=== PATIENT | female | born 1985 | race Caucasian/White ===

== ENCOUNTER 2020-01-27 11:29 | Outpatient (REF) | payer OTHER, SELFPAY ==
--- NOTE | 2020-01-27 11:39 | XR_ITS ---
EXAMINATION: XR CHEST CLINICAL INFORMATION: Cough. COMPARISON: None TECHNIQUE: 2 views of the chest were obtained. FINDINGS: No significant abnormality is noted involving the heart, lungs, mediastinum, bony thorax or soft tissues. XR/XR chest 2V IMPRESSION: Unremarkable chest examination.
== END 2020-01-27 11:30 | disposition home or self-care (01) ==
LOC: HO.HMGCX 11:29
PROVIDERS: PCP Internal Medicine; Visit Provider Hospitalist
DX: R05 Cough (principal)
CPT/HCPCS: 71046

== ENCOUNTER 2020-01-27 11:35 | Outpatient (REF) | payer OTHER, SELFPAY | END 2020-01-27 11:36 | disposition home or self-care (01) | LOC: HO.LAB 11:35 | PROVIDERS: Visit Provider Hospitalist | DX: R05 Cough (principal) | CPT/HCPCS: U0003 ==

== ENCOUNTER 2020-02-24 12:30 | Outpatient (REF) | payer OTHER, SELFPAY ==
[2020-02-24 12:55] LABS: MANUAL DIFF FLAG NO
[2020-02-24 13:02] LABS: Basophils Percent Auto 0.6 % (0-2); Eosinophils Absolute Auto 0.3 X10*3/uL (0.0-0.4); Hematocrit 36.5 % (37-47); Hemoglobin 12.7 g/dl (12.0-16.0); Imm Gran Abs Auto 0.01 X10*3/uL (0.00-0.03); Imm Gran Pct Auto 0.2 % (0.0-0.4); Lymphocytes Percent Auto 39.8 % (20-40); Mean Corpuscular HGB Conc 34.8 g/dl (31.0-35.0); Mean Corpuscular Hemoglobin 32.2 pg (27.0-33.0); Mean Corpuscular Volume 92.4 fL (80-98); Mean Platelet Volume 10.1 fL (9.4-12.3); Monocytes Absolute Auto 0.4 X10*3/uL (0.1-1.2); Monocytes Percent Auto 7.2 % (2-11); Neutrophils Absolute Auto 2.4 X10*3/uL (2.0-8.3); Neutrophils Percent Auto 47.2 % (45-73); Platelet Count 245 X10*3/uL (160-400); Red Blood Count 3.95 X10*6/uL (4.20-5.50); Red Cell Distribution Width 11.5 % (11.0-16.0)
[2020-02-24 13:28] LABS: Alanine Aminotransferase 15 U/L (0-31); Albumin Level 4.5 g/dL (3.5-5.0); Alkaline Phosphatase 43 U/L (39-117); Anion Gap 11 (12-20); Aspartate Amino Transferase 17 U/L (5-31); Bilirubin Total 0.6 mg/dL (0.0-1.0); Blood Urea Nitrogen 13 mg/dL (9-16); Calcium 9.3 mg/dL (8.4-10.2); Carbon Dioxide 27 mmol/L (22-29); Chloride 107 mmol/L (96-108); Estimated Glomerular Filt Rate > 60; Glucose Random 88 mg/dL (60-115); Magnesium 2.1 mg/dL (1.6-2.6); Potassium 4.4 mmol/l (3.3-5.1); Sodium 141 mmol/L (135-145); Total Protein 7.4 g/dL (6.5-8.0)
[2020-02-24 13:48] LABS: TSH reflex Free T4 0.49 mIU/mL (0.32-4.0)
[2020-02-24 14:26] LABS: Erythrocyte Sedimentation Rate 2 MM/HR (0-20)
[2020-02-26 13:02] LABS: Anti Nuclear Antibody Screen NEGATIVE (NEGATIVE)
== END 2020-02-24 12:31 | disposition home or self-care (01) ==
LOC: HO.LAB 12:30
PROVIDERS: PCP Internal Medicine; Visit Provider Internal Medicine
DX: I10 Essential (primary) hypertension (principal); M79.603 Pain in arm, unspecified; M79.10 Myalgia, unspecified site; M79.7 Fibromyalgia; E78.00 Pure hypercholesterolemia, unspecified
CPT/HCPCS: 36415; 80053; 82550; 83735; 84443; 85025; 85652; 86038; 86039; 86140

== ENCOUNTER 2020-03-21 12:38 | Outpatient (REF) | payer OTHER, SELFPAY ==
[2020-03-21 14:42] LABS: Anion Gap 13 (12-20); Blood Urea Nitrogen 9 mg/dL (9-16); Carbon Dioxide 24 mmol/L (22-29); Chloride 107 mmol/L (96-108); Estimated Glomerular Filt Rate > 60; Glucose Random 87 mg/dL (60-115); Rheumatoid Factor < 15.0 IU/mL (<15.0); Sodium 140 mmol/L (135-145)
[2020-03-21 15:31] LABS: Erythrocyte Sedimentation Rate 5 MM/HR (0-20)
[2020-03-22 08:48] LABS: Lyme Abs Screen <0.90 index
[2020-03-22 11:31] LABS: IgA 335 mg/dL (47-310); IgG 1213 mg/dL (600-1640); IgM 139 mg/dL (50-300)
[2020-03-22 12:22] LABS: Anti DNA DS Antibody 4 IU/mL
[2020-03-23 08:22] LABS: Anti Nuclear Antibody Screen NEGATIVE (NEGATIVE)
[2020-03-24 06:52] LABS: Aldolase 4.2 U/L (<=8.1)
== END 2020-03-21 12:39 | disposition home or self-care (01) ==
LOC: HO.LAB 12:38
PROVIDERS: PCP Internal Medicine; Visit Provider Psychiatry & Neurology Neurology
DX: M79.7 Fibromyalgia (principal)
CPT/HCPCS: 36415; 80048; 82085; 82550; 82784; 85652; 86038; 86039; 86225; 86431; 86618

== ENCOUNTER 2020-04-26 17:26 | Outpatient (REF) | payer OTHER, SELFPAY ==
--- NOTE | ~2020-04-26 | XR_ITS ---
EXAMINATION: BILATERAL SHOULDERS AND ELBOWS CLINICAL INFORMATION: Pain COMPARISON: None TECHNIQUE: 4 views of the shoulder and 3 views of each elbow FINDINGS: Left elbow: There is no evidence of acute fracture or dislocation of the left elbow. No left elbow effusion is identified. No evidence of calcific tendinitis. Right elbow: There is no evidence of acute fracture or dislocation of the right elbow. No right elbow effusion. No evidence of calcific tendinitis. Left shoulder: There is no evidence of acute fracture or dislocation of the left shoulder. Glenohumeral joint appears unremarkable. No evidence of calcific tendinitis. No widening of the coracoid clavicular space is seen. Right shoulder: There is no evidence of acute fracture or dislocation of the right shoulder. No calcific tendinitis. Glenohumeral joint appears unremarkable. No elevation of the coracoclavicular space. XR/XR shoulder LT min 2V IMPRESSION: No significant bony abnormality of either shoulder or elbow.
--- NOTE | ~2020-04-26 | XR_ITS ---
EXAMINATION: BILATERAL SHOULDERS AND ELBOWS CLINICAL INFORMATION: Pain COMPARISON: None TECHNIQUE: 4 views of the shoulder and 3 views of each elbow FINDINGS: Left elbow: There is no evidence of acute fracture or dislocation of the left elbow. No left elbow effusion is identified. No evidence of calcific tendinitis. Right elbow: There is no evidence of acute fracture or dislocation of the right elbow. No right elbow effusion. No evidence of calcific tendinitis. Left shoulder: There is no evidence of acute fracture or dislocation of the left shoulder. Glenohumeral joint appears unremarkable. No evidence of calcific tendinitis. No widening of the coracoid clavicular space is seen. Right shoulder: There is no evidence of acute fracture or dislocation of the right shoulder. No calcific tendinitis. Glenohumeral joint appears unremarkable. No elevation of the coracoclavicular space. XR/XR elbow RT min 3V IMPRESSION: No significant bony abnormality of either shoulder or elbow.
--- NOTE | ~2020-04-26 | XR_ITS ---
EXAMINATION: BILATERAL SHOULDERS AND ELBOWS CLINICAL INFORMATION: Pain COMPARISON: None TECHNIQUE: 4 views of the shoulder and 3 views of each elbow FINDINGS: Left elbow: There is no evidence of acute fracture or dislocation of the left elbow. No left elbow effusion is identified. No evidence of calcific tendinitis. Right elbow: There is no evidence of acute fracture or dislocation of the right elbow. No right elbow effusion. No evidence of calcific tendinitis. Left shoulder: There is no evidence of acute fracture or dislocation of the left shoulder. Glenohumeral joint appears unremarkable. No evidence of calcific tendinitis. No widening of the coracoid clavicular space is seen. Right shoulder: There is no evidence of acute fracture or dislocation of the right shoulder. No calcific tendinitis. Glenohumeral joint appears unremarkable. No elevation of the coracoclavicular space. XR/XR shoulder RT min 2V IMPRESSION: No significant bony abnormality of either shoulder or elbow.
--- NOTE | ~2020-04-26 | XR_ITS ---
EXAMINATION: BILATERAL SHOULDERS AND ELBOWS CLINICAL INFORMATION: Pain COMPARISON: None TECHNIQUE: 4 views of the shoulder and 3 views of each elbow FINDINGS: Left elbow: There is no evidence of acute fracture or dislocation of the left elbow. No left elbow effusion is identified. No evidence of calcific tendinitis. Right elbow: There is no evidence of acute fracture or dislocation of the right elbow. No right elbow effusion. No evidence of calcific tendinitis. Left shoulder: There is no evidence of acute fracture or dislocation of the left shoulder. Glenohumeral joint appears unremarkable. No evidence of calcific tendinitis. No widening of the coracoid clavicular space is seen. Right shoulder: There is no evidence of acute fracture or dislocation of the right shoulder. No calcific tendinitis. Glenohumeral joint appears unremarkable. No elevation of the coracoclavicular space. XR/XR elbow LT min 3V IMPRESSION: No significant bony abnormality of either shoulder or elbow.
== END 2020-04-26 17:27 | disposition home or self-care (01) ==
LOC: HO.XRAY 17:26
PROVIDERS: PCP Internal Medicine; Visit Provider Internal Medicine
DX: M25.522 Pain in left elbow (principal); M25.521 Pain in right elbow; M25.511 Pain in right shoulder; M25.512 Pain in left shoulder
CPT/HCPCS: 73030; 73080

== ENCOUNTER 2020-05-09 10:58 | Outpatient (REF) | payer OTHER, SELFPAY ==
[2020-05-09 12:39] LABS: MANUAL DIFF FLAG NO
[2020-05-09 12:47] LABS: Basophils Percent Auto 0.7 % (0-2); Eosinophils Absolute Auto 0.3 X10*3/uL (0.0-0.4); Eosinophils Percent Auto 5.2 % (0-4); Hematocrit 36.4 % (37-47); Hemoglobin 12.6 g/dl (12.0-16.0); Imm Gran Abs Auto 0.01 X10*3/uL (0.00-0.03); Imm Gran Pct Auto 0.2 % (0.0-0.4); Lymphocytes Absolute Auto 2.2 X10*3/uL (1.2-4.9); Lymphocytes Percent Auto 41.4 % (20-40); Mean Corpuscular HGB Conc 34.6 g/dl (31.0-35.0); Mean Corpuscular Hemoglobin 32.3 pg (27.0-33.0); Mean Corpuscular Volume 93.3 fL (80-98); Mean Platelet Volume 10.2 fL (9.4-12.3); Monocytes Absolute Auto 0.3 X10*3/uL (0.1-1.2); Monocytes Percent Auto 5.8 % (2-11); Neutrophils Absolute Auto 2.5 X10*3/uL (2.0-8.3); Neutrophils Percent Auto 46.7 % (45-73); Platelet Count 271 X10*3/uL (160-400); Red Cell Distribution Width 11.5 % (11.0-16.0); White Blood Count 5.4 X10*3/uL (4.8-10.8)
[2020-05-09 13:17] LABS: Alanine Aminotransferase 13 U/L (0-31); Albumin Level 4.6 g/dL (3.5-5.0); Alkaline Phosphatase 46 U/L (39-117); Anion Gap 14 (12-20); Aspartate Amino Transferase 16 U/L (5-31); Bilirubin Total 0.5 mg/dL (0.0-1.0); Blood Urea Nitrogen 12 mg/dL (9-16); C Reactive Protein 0.09 mg/dL (< or = 0.50); Calcium 9.5 mg/dL (8.4-10.2); Carbon Dioxide 25 mmol/L (22-29); Chloride 106 mmol/L (96-108); Estimated Glomerular Filt Rate > 60; Glucose Random 88 mg/dL (60-115); Potassium 4.6 mmol/L (3.3-5.1); Sodium 140 mmol/L (135-145); Total Protein 7.5 g/dL (6.5-8.0)
[2020-05-09 14:49] LABS: Erythrocyte Sedimentation Rate 4 MM/HR (0-20)
[2020-05-10 21:27] LABS: Lyme Abs Screen <0.90 index
[2020-05-11 13:21] LABS: Cyclic Citrullinated Peptide <16 UNITS
[2020-05-12 15:47] LABS: Vitamin D 25-OH, D2 <4 ng/mL; Vitamin D 25-OH, D3 22 ng/mL; Vitamin D 25-OH, Total 22 ng/mL (30-100)
== END 2020-05-09 10:59 | disposition home or self-care (01) ==
LOC: HO.LAB 10:58
PROVIDERS: PCP Internal Medicine; Visit Provider Student in an Organized Health Care Education/Training Program
DX: M25.50 Pain in unspecified joint (principal); Z79.899 Other long term (current) drug therapy
CPT/HCPCS: 36415; 80053; 82306; 82550; 84443; 85025; 85652; 86140; 86200; 86618; 99202

== ENCOUNTER → 2020-05-23 09:30 | Outpatient (BNVA) | payer OTHER, SELFPAY | PROVIDERS: PCP Internal Medicine; Visit Provider Student in an Organized Health Care Education/Training Program | DX: M25.50 Pain in unspecified joint (principal) | CPT/HCPCS: 99212 ==

== ENCOUNTER 2020-07-14 17:56 | Outpatient (REF) | payer OTHER, SELFPAY ==
--- NOTE | ~2020-07-14 | MR_ITS ---
EXAMINATION: UNENHANCED MRI OF THE CERVICAL SPINE; UNENHANCED MRI OF THE THORACIC SPINE CLINICAL INFORMATION: Radiculopathy. Self-reported bilateral arm pain with symptoms since October 2019. COMPARISON: None TECHNIQUE: Routine unenhanced MRI of the cervical spine; routine unenhanced MRI of the thoracic spine. FINDINGS: MRI CERVICAL SPINE: Vertebral body height, alignment and marrow signal are within normal limits. The visualized posterior fossa structures and craniocervical junction are normal in appearance with note made of relative flexion of the craniocervical junction. No cerebellar tonsillar ectopia is visualized. C2-C3: No central or foraminal stenoses. Normal intervertebral disc. C3-C4: Minimal right uncovertebral joint disc-osteophyte complex. No significant central or foraminal stenoses. C4-C5: No central or foraminal stenoses. Normal intervertebral disc. C5-C6: Minimal bilateral uncovertebral joint disc-osteophyte complexes. No significant central or foraminal stenoses. C6-C7: Mild central stenosis. Findings arise secondary to a mild central disc-osteophyte complex comprised predominantly of disc material with minimal effacement of the ventral thecal sac CSF space. C7-T1: Moderate posterior broad-based disc-osteophyte complex with bilateral uncovertebral joint incorporation resulting in moderate bilateral foraminal stenoses and moderate central stenosis. Approximately 50% bilateral foraminal stenoses are noted. Partial effacement of the ventral thecal sac CSF space is present without posterior displacement or AP deformation of the adjacent spinal cord. No signal abnormality in the adjacent spinal cord. MRI THORACIC SPINE: Thoracic vertebral body height, alignment and marrow signal are normal in appearance. The intervertebral discs of the thoracic spine are normal in appearance. No thoracic central or foraminal stenoses are visualized. The thoracic spinal cord is normal in caliber and signal intensity. The conus medullaris terminates in the region of L1-L2 but is not fully included within the image [id number]. No paraspinous masses are identified. Visualized lungs and pleura are normal in appearance. MR/MR cervical spine wo con IMPRESSION: MRI CERVICAL SPINE: 1. C7-T1 moderate bilateral foraminal stenoses with possible bilateral C8 nerve root impingement. Additionally, moderate central stenosis is present without direct spinal cord impingement. 2. Minimal multilevel chronic spondylosis elsewhere in the cervical spine aside from the C7-T1 level without associated direct nerve root impingement or significant central or foraminal stenoses. MRI THORACIC SPINE: Normal.
--- NOTE | ~2020-07-14 | MR_ITS ---
EXAMINATION: UNENHANCED MRI OF THE CERVICAL SPINE; UNENHANCED MRI OF THE THORACIC SPINE CLINICAL INFORMATION: Radiculopathy. Self-reported bilateral arm pain with symptoms since October 2019. COMPARISON: None TECHNIQUE: Routine unenhanced MRI of the cervical spine; routine unenhanced MRI of the thoracic spine. FINDINGS: MRI CERVICAL SPINE: Vertebral body height, alignment and marrow signal are within normal limits. The visualized posterior fossa structures and craniocervical junction are normal in appearance with note made of relative flexion of the craniocervical junction. No cerebellar tonsillar ectopia is visualized. C2-C3: No central or foraminal stenoses. Normal intervertebral disc. C3-C4: Minimal right uncovertebral joint disc-osteophyte complex. No significant central or foraminal stenoses. C4-C5: No central or foraminal stenoses. Normal intervertebral disc. C5-C6: Minimal bilateral uncovertebral joint disc-osteophyte complexes. No significant central or foraminal stenoses. C6-C7: Mild central stenosis. Findings arise secondary to a mild central disc-osteophyte complex comprised predominantly of disc material with minimal effacement of the ventral thecal sac CSF space. C7-T1: Moderate posterior broad-based disc-osteophyte complex with bilateral uncovertebral joint incorporation resulting in moderate bilateral foraminal stenoses and moderate central stenosis. Approximately 50% bilateral foraminal stenoses are noted. Partial effacement of the ventral thecal sac CSF space is present without posterior displacement or AP deformation of the adjacent spinal cord. No signal abnormality in the adjacent spinal cord. MRI THORACIC SPINE: Thoracic vertebral body height, alignment and marrow signal are normal in appearance. The intervertebral discs of the thoracic spine are normal in appearance. No thoracic central or foraminal stenoses are visualized. The thoracic spinal cord is normal in caliber and signal intensity. The conus medullaris terminates in the region of L1-L2 but is not fully included within the image [id number]. No paraspinous masses are identified. Visualized lungs and pleura are normal in appearance. MR/MR thoracic spine wo con IMPRESSION: MRI CERVICAL SPINE: 1. C7-T1 moderate bilateral foraminal stenoses with possible bilateral C8 nerve root impingement. Additionally, moderate central stenosis is present without direct spinal cord impingement. 2. Minimal multilevel chronic spondylosis elsewhere in the cervical spine aside from the C7-T1 level without associated direct nerve root impingement or significant central or foraminal stenoses. MRI THORACIC SPINE: Normal.
== END 2020-07-14 17:57 | disposition home or self-care (01) ==
LOC: HO.MRI 17:56
PROVIDERS: Visit Provider Physical Medicine & Rehabilitation
DX: M54.12 Radiculopathy, cervical region (principal)
CPT/HCPCS: 72141; 72146

== ENCOUNTER 2020-07-25 17:43 | Outpatient (REF) | payer OTHER, SELFPAY ==
--- NOTE | ~2020-07-25 | MR_ITS ---
EXAMINATION: MRI WRIST WITHOUT CONTRAST, LEFT CLINICAL INFORMATION: Elbow pain. Medial pain. COMPARISON: X-ray 04/26/2020 TECHNIQUE: MRI of the wrist without contrast is performed in a 1.5 Shahida high-field scanner. FINDINGS: BONE/JOINTS: Normal articulation. Marrow signal is within normal limits. No evidence of fracture or marrow edema. No osteochondral lesion. No significant effusion. MUSCLE/TENDONS: Biceps, brachialis, triceps tendons are intact. Common flexor and common extensor tendon origins are intact. Muscles appear unremarkable. LIGAMENTS: Ulnar collateral ligament, radial collateral ligament, lateral ulnar collateral ligaments are intact. MEDIAN NERVE: Within normal limits. MR/MR elbow LT wo con IMPRESSION: 1. No evidence of acute osseous . 2. Tendons are intact. 3. . Ligaments appear intact.
--- NOTE | ~2020-07-25 | MR_ITS ---
EXAMINATION: MRI ELBOW WITHOUT CONTRAST, RIGHT CLINICAL INFORMATION: Medial elbow pain. COMPARISON: Right elbow radiographs dated April 26, 2020. TECHNIQUE: MRI of the right elbow was performed without administration of IV contrast. Multiplanar, multisequence MR imaging was performed. FINDINGS: Bone/Cartilage: The bone marrow signal intensity is within normal limits. No fracture line or bone marrow edema. The radiocapitellar and ulnohumeral articulations are maintained. No erosion or periosteal edema. No osteochondral lesion. Tendons: The common flexor and extensor tendons are intact. The biceps tendon and lacertus fibrosis are intact. The brachialis tendon is intact. The triceps tendon is intact. Ligaments: The radial collateral and lateral ulnar collateral ligaments are intact. The annular ligament is intact. The ulnar collateral ligament is intact. Soft tissues: The muscles are normal in signal and morphology. No joint effusion. The soft tissues are unremarkable. The cubital tunnel is unremarkable without accessory musculature. The visualized radial, median and ulnar nerves are normal in course, caliber and signal intensity. MR/MR elbow RT wo con IMPRESSION: Right elbow: 1. Intact common flexor and extensor tendons. 2. Intact ligaments. 3. Preserved articular cartilage. 4. Normal signal of the median, ulnar, and radial nerves. 5. Normal signal and morphology of the visualized musculature.
== END 2020-07-25 17:44 | disposition home or self-care (01) ==
LOC: HO.MRI 17:43
PROVIDERS: Visit Provider Internal Medicine
DX: M25.521 Pain in right elbow (principal); M25.522 Pain in left elbow
CPT/HCPCS: 73221

== ENCOUNTER 2020-07-27 17:49 | Outpatient (REF) | payer OTHER, SELFPAY ==
--- NOTE | ~2020-07-27 | MR_ITS ---
EXAMINATION: MRI SHOULDER WITHOUT CONTRAST, LEFT CLINICAL INFORMATION: Pain in shoulder. Patient reports bilateral shoulder weakness and burning. COMPARISON: None. TECHNIQUE: MRI scanning is performed using a standard protocol on a high-field strength 1.5 Shahida magnet. FINDINGS: ROTATOR CUFF: Intact. No muscle atrophy or fatty infiltration. BICEPS: Normal. CORACOACROMIAL ARCH: The undersurface of the acromion is curved with no subacromial spur. The acromioclavicular joint is normal. LABRUM/CAPSULE: Normal. GLENOHUMERAL JOINT/MARROW: Normal. MR/MR shoulder LT wo con IMPRESSION: Unremarkable MRI of the left shoulder with no evidence of internal derangement.
--- NOTE | ~2020-07-27 | MR_ITS ---
EXAMINATION: MR SHOULDER WITHOUT CONTRAST, RIGHT CLINICAL INFORMATION: Pain in right shoulder. Patient reports bilateral weakness and burning. COMPARISON: None TECHNIQUE: MRI of the shoulder without contrast was performed on a high-field scanner. FINDINGS: ROTATOR CUFF: There is mild distal supraspinatus tendinosis. There is a suggestion of minor bursal surface fraying. There is no discrete measurable tear. The infraspinatus, teres minor, and subscapularis tendons are intact. No muscle atrophy or fatty infiltration. BICEPS: Normal. CORACOACROMIAL ARCH: The undersurface of the acromion is curved with no subacromial spur. The acromioclavicular joint is normal. LABRUM/CAPSULE: Normal. GLENOHUMERAL JOINT/MARROW: Normal. MR/MR shoulder RT wo con IMPRESSION: Mild distal supraspinatus tendinosis with suggestion of minor bursal surface fraying. No discrete tear. No other evidence of internal derangement.
== END 2020-07-27 17:50 | disposition home or self-care (01) ==
LOC: HO.MRI 17:49
PROVIDERS: Visit Provider Internal Medicine
DX: M25.511 Pain in right shoulder (principal); M25.512 Pain in left shoulder
CPT/HCPCS: 73221

== ENCOUNTER 2020-08-03 19:16 | Outpatient (REF) | payer OTHER, SELFPAY ==
--- NOTE | ~2020-08-03 | MR_ITS ---
EXAMINATION: MR WRIST WITHOUT CONTRAST, RIGHT CLINICAL INFORMATION: Right wrist pain COMPARISON: None TECHNIQUE: MRI of the right wrist was performed using routine sequences on a high-field 1.5 Shahida scanner. FINDINGS: BONES AND JOINTS: The distal radius, ulna and radioulnar joint are normal. The ulna is properly positioned within the sigmoid notch. Carpal bones have normal alignment and normal bone marrow signal. Articular cartilage of the wrist is preserved. No bone bruise, fracture or osteonecrosis. No joint effusion. No evidence of synovitis. The first carpometacarpal joint is normal. TRIANGULAR FIBROCARTILAGE: The triangular fibrocartilage disc is intact. The peripheral, fascicular attachments of the TFC to the ulnar styloid and fovea are intact. The volar and dorsal radioulnar ligaments, and ulnotriquetral ligament, are unremarkable. INTRINSIC LIGAMENTS: Scapholunate and lunatotriquetral ligaments are intact. TENDONS: Flexor and extensor tendons of the wrist have a normal appearance. No evidence of tendon tear or de Quervain's tenosynovitis. NERVES AND OTHER SOFT TISSUES: Median nerve has normal size and signal intensity as it courses through the carpal tunnel. The radial and ulnar neurovascular bundles are unremarkable. No lesions within Guyon's canal. Volar to the region of the radioscaphoid joint, there is a 0.2 x 0.4 x 0.6 cm ganglion or synovial cyst. MR/MR wrist RT wo con IMPRESSION: * No evidence of ligament tear. * No bone bruise or fracture at the right wrist. * There is a small, 0.2 x 0.4 x 0.6 cm ganglion or synovial cyst volar to the radioscaphoid joint.
== END 2020-08-03 19:17 | disposition home or self-care (01) ==
LOC: HO.MRI 19:16
PROVIDERS: PCP Internal Medicine; Visit Provider Internal Medicine
DX: G89.29 Other chronic pain (principal); M25.531 Pain in right wrist
CPT/HCPCS: 73221

== ENCOUNTER 2021-02-28 13:17 | Outpatient (REF) | payer OTHER, SELFPAY ==
[2021-02-28 14:59] LABS: Hematocrit 36.9 % (37.0-47.0); Hemoglobin 12.9 g/dl (12.0-16.0); Mean Corpuscular Hemoglobin 32.3 pg (27.0-33.0); Mean Corpuscular Volume 92.3 fL (80.0-98.0); Platelet Count 236 X10*3/uL (160-400); Red Cell Distribution Width 11.4 % (11.0-16.0); White Blood Count 7.9 X10*3/uL (4.8-10.8)
[2021-02-28 15:38] LABS: Thyroid Stimulating Hormone 1.13 uIU/mL (0.32-4.0)
[2021-03-01 01:50] LABS: CT PCR NOT DETECTED (Not Detect.); NG PCR NOT DETECTED (Not Detect.)
[2021-03-01 09:13] LABS: BV Int Neg Control Negative (Negative); BV Int Pos Control Positive (Positive)
[2021-03-03 02:31] LABS: HPV mRNA E6/E7 rflx Not Detected (Not Detected)
== END 2021-02-28 13:18 | disposition home or self-care (01) ==
LOC: HO.LAB 13:17
PROVIDERS: PCP Internal Medicine; Visit Provider Advanced Practice Midwife
DX: Z01.411 Encounter for gynecological examination (general) (routine) with abnormal findings (principal); Z20.2 Contact with and (suspected) exposure to infections with a predominantly sexual mode of transmission; N89.8 Other specified noninflammatory disorders of vagina; N92.1 Excessive and frequent menstruation with irregular cycle; N94.6 Dysmenorrhea, unspecified; N93.0 Postcoital and contact bleeding; R68.82 Decreased libido
CPT/HCPCS: 36415; 84443; 85027; 87480; 87491; 87510; 87591; 87624; 87660; 88142

== ENCOUNTER 2021-03-26 14:39 | Outpatient (REF) | payer OTHER, SELFPAY ==
--- NOTE | ~2021-03-26 | US_ITS ---
EXAMINATION: US PELVIS CLINICAL INFORMATION: Irregular menstruation. Painful menses. COMPARISON: None. TECHNIQUE: Ultrasound of the pelvis is performed using both transabdominal and transvaginal transducers along with Doppler. Transvaginal imaging is performed due to inadequate visualization transabdominally. FINDINGS: The uterus is anteverted and measures 8.4 x 4.1 x 4.7 cm in dimension. No focal uterine lesion is seen. Endometrial thickness is normal measuring 1 cm. There are nabothian cysts in the cervix. The right ovary measures 4.5 x 2.3 x 3 cm. There is a 2.6 x 2 x 2.2 cm minimally complex right ovarian cyst. The left ovary is normal appearing. The left ovary measures 3.5 x 1.6 x 2.5 cm. There is no fluid in the pelvis. US/US pelvic and transvaginal IMPRESSION: Minimally complex 2.6 x 2 x 2.2 cm right ovarian cyst. Otherwise unremarkable exam.
== END 2021-03-26 14:40 | disposition home or self-care (01) ==
LOC: HO.HMGCX 14:39
PROVIDERS: PCP Internal Medicine; Visit Provider Advanced Practice Midwife
DX: N92.6 Irregular menstruation, unspecified (principal)
CPT/HCPCS: 76830; 76856

== ENCOUNTER → 2021-03-29 11:33 | Outpatient (BNVA) | payer OTHER, SELFPAY | PROVIDERS: PCP Internal Medicine; Visit Provider Advanced Practice Midwife ==

== ENCOUNTER 2021-05-28 13:24 | Outpatient (REF) | payer OTHER, SELFPAY ==
--- NOTE | ~2021-05-28 | US_ITS ---
EXAMINATION: US PELVIS CLINICAL INFORMATION: Ovarian cyst COMPARISON: Previous pelvic ultrasound March 2021 TECHNIQUE: Ultrasound of the pelvis is performed using both transabdominal and transvaginal transducers along with Doppler. Transvaginal imaging is performed due to inadequate visualization transabdominally. FINDINGS: The uterus is anteverted and measures 7 x 3.9 x 4.8 cm in dimension. No focal uterine lesion is seen. Endometrial thickness is normal measuring 0.5 cm. There are nabothian cysts in the cervix. The ovaries are normal-appearing. The right ovary measures 4.3 x 2.1 x 3 cm. The left ovary measures 3.6 x 1.8 x 3 cm. There are multiple small ovarian cysts or follicles, largest measuring 1.6 x 1.1 x 1.4 cm on the left. The previously identified minimally complex 2.6 x 2 x 2.2 cm right ovarian cyst is no longer seen. There is no fluid in the pelvis. US/US pelvic and transvaginal IMPRESSION: Normal pelvic ultrasound.
[2021-05-28 14:45] LABS: MANUAL DIFF FLAG NO
[2021-05-28 15:28] LABS: Basophils Percent Auto 0.4 % (0-2); Eosinophils Absolute Auto 0.2 X10*3/uL (0.0-0.4); Eosinophils Percent Auto 2.4 % (0-4); Hematocrit 37.1 % (37.0-47.0); Hemoglobin 12.6 g/dl (12.0-16.0); Imm Gran Abs Auto 0.01 X10*3/uL (0.00-0.03); Imm Gran Pct Auto 0.1 % (0.0-0.4); Lymphocytes Absolute Auto 2.2 X10*3/uL (1.2-4.9); Mean Corpuscular Hemoglobin 31.4 pg (27.0-33.0); Mean Corpuscular Volume 92.5 fL (80.0-98.0); Mean Platelet Volume 9.8 fL (9.4-12.3); Monocytes Absolute Auto 0.4 X10*3/uL (0.1-1.2); Monocytes Percent Auto 5.2 % (2-11); Neutrophils Absolute Auto 4.1 x10*3/uL (2.0-8.3); Neutrophils Percent Auto 59.9 % (45-73); Platelet Count 283 X10*3/uL (160-400); Red Blood Count 4.01 X10*6/uL (4.20-5.50); Red Cell Distribution Width 11.7 % (11.0-16.0); White Blood Count 6.8 X10*3/uL (4.8-10.8)
[2021-05-28 15:52] LABS: Appearance Urine CLEAR; Color Urine STRAW; Glucose Urine UA NEG (NEG); Leukocyte Esterase Urine NEG (NEG); Nitrite Urine NEG (NEG); PH 5.5 (5.0-8.0); Specific Gravity - Urine <= 1.005 (1.005-1.025); UACC Culture Trigger NO; Urine Blood 1+ (NEG); Urine Ketones NEG (NEG); Urine Protein NEG (NEG-TRACE)
[2021-05-28 15:54] LABS: Alanine Aminotransferase 18 U/L (0-31); Albumin Level 4.4 g/dL (3.5-5.0); Alkaline Phosphatase 43 U/L (39-117); Anion Gap 12 (12-20); Aspartate Amino Transferase 18 U/L (5-31); Bilirubin Total 0.2 mg/dL (0.0-1.0); Blood Urea Nitrogen 13 mg/dL (9-16); C Reactive Protein 0.07 mg/dL (< or = 0.50); Calcium 9.8 mg/dL (8.4-10.2); Carbon Dioxide 26 mmol/L (22-29); Chloride 107 mmol/L (96-108); Cholesterol 163 mg/dL; Estimated Glomerular Filt Rate > 60; Glucose Fasting 83 mg/dL (60-99); HDL Cholesterol 40 mg/dL; LDL Cholesterol Calculated 112 mg/dl; Potassium 4.9 mmol/L (3.3-5.1); Sodium 140 mmol/L (135-145); Total Protein 7.3 g/dL (6.5-8.0); Triglycerides 58 mg/dL
[2021-05-28 16:04] LABS: Erythrocyte Sedimentation Rate 5 MM/HR (0-20)
[2021-05-28 16:16] LABS: TSH reflex Free T4 1.11 uIU/mL (0.32-4.0); Vitamin D 25-OH Total 24.1 ng/mL (>30)
[2021-05-28 16:45] LABS: Squamous Epithelial Cell Urine TRACE /LPF; WBC Urine 0 /HPF (0-4)
[2021-05-30 03:37] LABS: DHEA Sulfate 31 mcg/dL (19-237); Prolactin 6.1 ng/mL
[2021-06-02 20:51] LABS: Testosterone, Free 3.9 pg/mL (0.1-6.4); Testosterone, Total 33 ng/dL (2-45)
== END 2021-05-28 13:25 | disposition home or self-care (01) ==
LOC: HO.US 13:24
PROVIDERS: Absent Provider Internal Medicine; PCP Internal Medicine; Visit Provider Advanced Practice Midwife
DX: Z00.00 Encounter for general adult medical examination without abnormal findings (principal); N83.299 Other ovarian cyst, unspecified side; N92.6 Irregular menstruation, unspecified; E78.00 Pure hypercholesterolemia, unspecified; M47.894 Other spondylosis, thoracic region; E55.9 Vitamin D deficiency, unspecified
CPT/HCPCS: 36415; 76830; 76856; 80053; 80061; 81001; 82306; 82627; 83498; 84146; 84402; 84403; 84443; 85025; 85652; 86140

== ENCOUNTER 2021-06-08 12:31 | Outpatient (REF) | payer OTHER, SELFPAY ==
[2021-06-08 13:00] LABS: COVID-19 Test Positive (Negative)
== END 2021-06-08 12:32 | disposition home or self-care (01) ==
LOC: HO.LAB 12:31
PROVIDERS: Visit Provider Internal Medicine
DX: Z20.822 Contact with and (suspected) exposure to COVID-19 (principal)
CPT/HCPCS: 87635; C9803

== ENCOUNTER → 2021-06-11 11:21 | Outpatient (BNVA) | payer OTHER, SELFPAY | PROVIDERS: PCP Internal Medicine; Visit Provider Advanced Practice Midwife | DX: Z13.89 Encounter for screening for other disorder (principal) ==

== ENCOUNTER 2021-08-02 15:56 | Outpatient (REF) | payer OTHER, SELFPAY ==
[2021-08-02 16:28] LABS: COVID-19 Test Negative (Negative); IDNOW Serial# 16C4AD1C
== END 2021-08-02 15:57 | disposition home or self-care (01) ==
LOC: HO.LAB 15:56
PROVIDERS: Visit Provider Internal Medicine
DX: Z20.822 Contact with and (suspected) exposure to COVID-19 (principal)
CPT/HCPCS: 87635; C9803

== ENCOUNTER 2022-03-04 13:19 | Outpatient (REF) | payer OTHER, SELFPAY ==
[2022-03-05 09:43] LABS: BV Int Neg Control Negative (Negative); BV Int Pos Control Positive (Positive)
== END 2022-03-04 13:20 | disposition home or self-care (01) ==
LOC: HO.LAB 13:19
PROVIDERS: PCP Internal Medicine; Visit Provider Advanced Practice Midwife
DX: N92.0 Excessive and frequent menstruation with regular cycle (principal); N94.6 Dysmenorrhea, unspecified; F32.A Depression, unspecified
CPT/HCPCS: 87480; 87510; 87660

== ENCOUNTER 2022-10-25 09:03 | Outpatient (REF) | payer OTHER, SELFPAY ==
--- NOTE | ~2022-10-25 | XR_ITS ---
EXAMINATION: XR THORACOLUMBAR SPINE CLINICAL INFORMATION: Pain. COMPARISON: Portions of the MRI thoracic spine dated 07/06/2020. TECHNIQUE: Frontal and lateral views of the thoracic spine are submitted. FINDINGS: Vertebral body heights are normal. There is a very mild thoracic dextroscoliosis, which may be positional. The thoracic disc spaces are well-maintained. No acute fracture or spondylolisthesis is seen. There is mild anterior spondylosis at T3-T4 and T4-T5. The posterior elements are intact. The paravertebral soft tissues are unremarkable. XR/XR thoracic spine 2V IMPRESSION: 1. There is a very mild thoracic dextroscoliosis, which may be positional. 2. The thoracic disc spaces are well-maintained. 3. There is mild anterior spondylosis at C3-C4 and C4-C5. EXAMINATION: XR LUMBOSACRAL SPINE CLINICAL INFORMATION: Pain. COMPARISON: None TECHNIQUE: AP and lateral (neutral, flexion and extension) views of the lumbar spine and lateral view of the lumbosacral junction. FINDINGS: The vertebral bodies and posterior elements are normal. The disc spaces are preserved and the vertebral alignment is normal. A small limbus vertebra is seen anterior to the L1 upper endplate. No acute fracture or spondylolisthesis is seen. There is no instability with flexion or extension. The paraspinal soft tissues are normal. IMPRESSION: Unremarkable examination.
--- NOTE | ~2022-10-25 | XR_ITS ---
EXAMINATION: XR THORACOLUMBAR SPINE CLINICAL INFORMATION: Pain. COMPARISON: Portions of the MRI thoracic spine dated 07/06/2020. TECHNIQUE: Frontal and lateral views of the thoracic spine are submitted. FINDINGS: Vertebral body heights are normal. There is a very mild thoracic dextroscoliosis, which may be positional. The thoracic disc spaces are well-maintained. No acute fracture or spondylolisthesis is seen. There is mild anterior spondylosis at T3-T4 and T4-T5. The posterior elements are intact. The paravertebral soft tissues are unremarkable. XR/XR lumbar spine 4V min IMPRESSION: 1. There is a very mild thoracic dextroscoliosis, which may be positional. 2. The thoracic disc spaces are well-maintained. 3. There is mild anterior spondylosis at C3-C4 and C4-C5. EXAMINATION: XR LUMBOSACRAL SPINE CLINICAL INFORMATION: Pain. COMPARISON: None TECHNIQUE: AP and lateral (neutral, flexion and extension) views of the lumbar spine and lateral view of the lumbosacral junction. FINDINGS: The vertebral bodies and posterior elements are normal. The disc spaces are preserved and the vertebral alignment is normal. A small limbus vertebra is seen anterior to the L1 upper endplate. No acute fracture or spondylolisthesis is seen. There is no instability with flexion or extension. The paraspinal soft tissues are normal. IMPRESSION: Unremarkable examination.
== END 2022-10-25 09:04 | disposition home or self-care (01) ==
LOC: HO.XRAY 09:03
PROVIDERS: Visit Provider Physical Medicine & Rehabilitation
DX: M54.6 Pain in thoracic spine (principal); M54.50 Low back pain, unspecified
CPT/HCPCS: 72070; 72110

== ENCOUNTER 2022-11-01 13:07 | Outpatient (AMB) | payer OTHER, SELFPAY ==
[2022-11-01 13:11] VITALS: BP 118/72; PULSE 66; O2SAT 98; BMI 24.4
--- NOTE | 2022-11-01 13:11 | MHC.PC.OV ---
Vital Signs 11/01/22 13:11 Height 5 ft 1 in Weight 129 lb BMI 24.4 BP 118/72 Blood Pressure Location Lt brachial Position Sitting Pulse 66 Pulse Source Pulse Oximeter Pulse Oximetry (%) 98 Oxygen Delivery Method Room Air Intake Visit Reasons: Physical exam Personnel Administrator Required: No Accompanied by: Self / Same As Patient Allergies Penicillins Allergy (Unknown, Verified 11/01/22 13:28) Itching Medication List - Last Reconciled 11/01/22 by Jacinto Rivera MD etonogestrel-ethinyl estradiol 0.12-0.015 mg/24 hr (NuvaRing) 1 vag ring vaginal Q4W 3 weeks Tobacco use date assessed: 11/01/22 Dental Screening Dental Screen Date: 11/01/22 Did you have a dental visit in the last 12 months?: Yes Did you have a dental problem in the last 6 months where you did not have access to dental care?: No Was dental information given to patient?: Patient has dentist HPI Physical exam HPI Details Patient comes in today for her annual physical examination - was last seen in 01/2021 States that she has been experiencing increased anxiety for the past few months now Relates that her has ADHD and trying to constantly help him get on track with everything is making things feel a lot worse for her lately Recalls that she has taken Prozac when she was a teenager and later was on Zoloft in the past - thinks that she did well on Zoloft Adds that she was experiencing increased pain over her left wrist for a while but it is now feeling better and it is her right wrist now that is bothering her - states that this has been going on for about 6 months now and she would like to get a referral to physical therapy for her wrist She has been seeing her chiropractor regularly for her back pain and currently still has recurrent pain over her right mid to lower thoracic area Recalls getting some back x-rays ordered by her chiropractor done recently and was advised that her x-rays were normal She would like to get referred to physical therapy as well for her right-sided back pain States that she has some significant family history of cancer, particularly breast cancer, but was recently advised that she is too young to get screening mammogram started Would like to see if she can be referred for some genetic testing States that she was offered states free genetic testing at [facility] in [place] but was told that she will need to be part of a clinical trial to be able to get the genetic testing done for free - she currently has a couple of family members who are involved in the trial States that she was advised that she will need a couple of genetic test done by a company called [employer] and she would like to see if she can just and the test ordered as she does not wish to be part of a clinical trial States that she feels okay otherwise She denies any headaches or dizziness Denies any chest pains, no shortness of breath No nausea /vomiting, no abdominal pain No change in bowel habits noted Denies any acute urinary symptoms PFSH Medical History (Updated 11/03/22 @ 21:17 by Jacinto Rivera MD) Depression Anxiety Cervical spondylosis with radiculopathy Chronic pain of right wrist Bilateral elbow joint pain Shoulder pain, bilateral Musculoskeletal pain of upper extremity Surgical History [place] teeth extracted Family History Mother Breast cancer Congestive heart failure Maternal Grandfather Colon cancer Diabetes Sister Brain tumor (benign) Other Mental health problem Substance abuse Social History Housing: Apartment Alcohol intake: current Alcohol intake frequency: holidays/special occasions only Patient Tobacco Use Status: Never used Tobacco Second Hand Smoke Exposure: Yes service: No Current occupational status: employed 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 1. Little interest or pleasure in doing things: not at all 2. Feeling down, depressed, or hopeless: not at all 3. Trouble falling or staying asleep, or sleeping too much: not at all 4. Feeling tired or having little energy: not at all 5. Poor appetite or overeating: not at all 6. Feeling bad about yourself - or that you are a failure or have let yourself or your family down: not at all 7. Trouble concentrating on things, such as reading the newspaper or watching television: not at all 8. Moving or speaking so slowly that other people could have noticed. Or the opposite - being so fidgety or restless that you have been moving around a lot more than usual: not at all 9. Thoughts that you would be better off or of hurting yourself in some way: not at all Total score: 0 Depression Screening Interpretation: Negative 14077 - PHQ-9 Billing: Yes Source: Developed by Drs. Hank Reyes, Chelsea Rob, Jorge Edmonds and colleagues, with an educational kaitlin from [employer]. Thrive Questionnaire Date Thrive assessed: 11/01/22 I am a: Patient What is your living situation today?: I have a steady place to live Within the past 12 months, did the food you bought not last and you didn't have the money to get more?: Never true Within the past 12 months, did you worry whether your food would run out before you got money to buy more?: Never true Do you have trouble paying for medicines?: No Do you have trouble getting transportation to medical appointments?: No Do you have trouble paying your heating and electricity bill?: No Do you have trouble taking care of your child, family member or friend?: No Do you have trouble with day-to-day activities such as bathing, preparing meals, shopping, managing finances, etc.?: No Are you currently unemployed and looking for a job?: No Are you interested in more education?: No Please select the resources that you would like help with: None Currently or been in a relationship where the following occur: no concerns reported AUDIT C Alcohol Use Questionnaire (AUDIT-C) 1. How often do you have a drink containing alcohol?: Monthly or less 2. How many drinks containing alcohol do you have on a typical day when you are drinking?: 1 or 2 3. How often do you have six or more drinks on one occasion?: Never Total Score: 1 Score Reviewed/Action Taken: Yes JIM-7 AMB Questionnaire JIM-7 Date JIM - 7 assessed: 11/01/22 Feeling nervous, anxious, or on edge: 3 = Nearly every day Not being able to stop or control worryin = Nearly every day Worrying too much about different things: 3 = Nearly every day Trouble relaxin = Nearly every day Being so restless that it is hard to sit still: 3 = Nearly every day Becoming easily annoyed or irritable: 3 = Nearly every day Feeling afraid as if something awful might happen: 3 = Nearly every day Total JIM-7 score (0-4 normal; 5-9 mild; 10-14 moderate; 15-21 severe): 21 Source: Developed by Drs. Hank Reyes, Chelsea Rob, Jorge Edmonds and colleagues, with an educational kaitlin from [employer]. Review of Systems Const Denies chills, Denies fatigue, Denies fever(s), Denies headache(s) and Denies malaise Eyes Denies blurry vision, Denies change in vision, Denies irritation and Denies itchy eyes ENT Denies dysphagia, Denies dizziness, Denies otalgia, Denies headache(s), Denies nasal congestion, Denies neck pain, Denies odynophagia, Denies sinus pain and Denies sore throat Card Denies chest pain, Denies rapid heart rate, Denies irregular heart rhythm, Denies palpitations and Denies dyspnea Resp Denies chest congestion, Denies cough, Denies dyspnea and Denies wheezing GI Denies abdominal pain, Denies bloating, Denies constipation, Denies dysphagia, Denies heartburn, Denies diarrhea, Denies nausea, Denies odynophagia and Denies vomiting Denies hematuria, Denies urinary frequency, Denies dysuria, Denies urinary incontinence and Denies urinary urgency Musc Reports back pain (right middle back), Reports arthralgias (right wrist), Denies joint swelling, Denies muscle weakness and Denies neck pain Skin/Breast Denies breast pain, Denies breast mass, Denies change in pigmentation, Denies lesions, Denies rash and Denies unusual bruising Neuro Denies dizziness, Denies headache(s) and Denies paresthesias Psych Reports anxiety (increasing) and Denies depression Endo Denies fatigue and Denies palpitations Rey/Lymph Denies easy bruising Aller/Immun Denies itchy eyes and Denies wheezing Physical exam (Primary Care) Vital Signs: Last Vital Signs Pulse 66 11/01/22 13:11 BP 118/72 11/01/22 13:11 Pulse Ox 98 11/01/22 13:11 Oxygen Delivery Method Room Air 11/01/22 13:11 BMI result Body Mass Index 24.4 Tobacco/Smoking Status: Tobacco use Status Tobacco use date assessed 11/01/22 11/01/22 13:16 Patient Tobacco Use Status Never used Tobacco 11/01/22 13:16 PHQ-9: PHQ-9 Score PHQ-9: Total score 0 11/01/22 13:30 Depression Screening Interpretation: Negative Thrive Assessment: Date of Thrive Assessment Date Thrive assessed 11/01/22 11/01/22 13:16 Currently or been in a relationship where the following occur: no concerns reported Const General: no acute distress, alert and awake Orientation/consciousness: patient oriented x3 HENMT Head: Yes normocephalic and Yes atraumatic Ears: external ears normal, TM's normal bilaterally and EAC's normal General nose exam: No nasal discharge present Face and sinus: Yes normal facial exam and Yes sinuses nontender Teeth and gingiva: dentition normal Throat: Yes posterior oropharynx normal and Yes tonsils normal (no TP congestion) Eyes Eyelids: Yes eyelids normal Conjunctivae: conjunctivae normal Pupils: Equal, round and reactive pupils present EOM: EOMs intact bilaterally Neck Neck: Yes no lymphadenopathy and Yes supple Thyroid: Thyroid normal Resp Auscultation: clear to auscultation bilaterally, no rales and no wheezes Cardio Rate: regular rate Rhythm: regular rhythm Heart sounds: no murmurs GI Palpation (GI): Soft to palpation, nontender and No hepatosplenomegaly present Auscultation: normal bowel sounds General: Yes no CVA tenderness Back/Spine/Pelvis Back: no CVA tenderness Thoracic/Lumbar Spine: thoracic and lumbar spine normal to inspection and paraspinal muscle tenderness on the right in the mid thoracic and in the lower thoracic Skin Lesions: no lesions Rashes: no rashes Neuro General: patient oriented x3, moves all extremities, no focal motor deficits and CN's II-XI intact bilaterally Cranial nerves: Yes Equal, round and reactive pupils present Cognition (Neuro): normal cognition Gait exam (Neuro): Normal gait present Extrem General: Yes no clubbing, cyanosis or edema Right upper extremity: wrist Details: tenderness; no swelling Assessment and Plan Assessment & Plan (1) Annual physical exam: Code(s): Z00.00 - Encounter for general adult medical examination without abnormal findings Plan: Check labs Patient is up-to-date with 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 and pap smear and her next appt is scheduled in February 2023 (2) Right-sided thoracic back pain: Code(s): M54.6 - Pain in thoracic spine Qualifiers: Chronicity: unspecified Qualified Code(s): M54.6 - Pain in thoracic spine Plan: Thoracic spine x-rays done last week came out normal except for a very mild thoracic dextroscoliosis, which may be positional States that she has been seeing her chiropractor for a while now with no significant relief Per request, will refer her to physical therapy for furher evaluation and management (3) Right wrist pain: Code(s): M25.531 - Pain in right wrist Plan: Per request, will also refer her to physical therapy for further evaluation and management of her right wrist pain (4) Anxiety: Code(s): F41.9 - Anxiety disorder, unspecified Plan: Will start her on Sertraline 50 mg QD and Hydroxyzine 25 mg TID PRN (5) Family history of breast cancer: Code(s): Z80.3 - Family history of malignant neoplasm of breast Plan: States that she has a strong family history of cancer and has a couple of family members involved now in a cancer clinical trial at [facility] in [place] and that she has been advised that she should also get tested for some genetic predisposition to cancer but she does not wish to join a clinical trial and is requesting if we can just order her the genetic testing that she needs Is advised that genetic testing usually will require insurance approval and as we do not have routine genetic testing done here at [facility], the test will have to be sent out and again will have to be pending insurance approval Advised also that the tests that she is currently requesting for are not available commercially Have advised patient that the best way to look into these would be to get a referral to the genetic Department at [facility] but caution that they may not be taking any referrals or they may not accept her health insurance at this time - referral done (6) Breast cancer screening by mammogram: Code(s): Z12.31 - Encounter for screening mammogram for malignant neoplasm of breast Plan: Patient is advised that based on her current family history (mother was reportedly diagnosed with triple negative breast cancer) at age 45, she should have a good chance of getting her mammogram approved by her insurance company at present - screening mammogram ordered Plan Follow up in 3 months Orders: Orders PT Evaluation and Treatment 11/01/22 M25.531 - Pain in right wrist, M54.6 - Pain in thoracic spine MM tomosynthesis screening BI 11/01/22 Z12.31 - Encounter for screening mammogram for malignant neoplasm of breast UA CC w/rflx Micro + Cult 11/01/22 F41.9 - Anxiety disorder, unspecified, R30.0 - Dysuria, Z00.00 - Encounter for general adult medical examination without abnormal findings Complete Blood Count Auto Diff 11/01/22 F41.9 - Anxiety disorder, unspecified, Z00.00 - Encounter for general adult medical examination without abnormal findings Comprehensive [place]el. Panel Fast 11/01/22 F41.9 - Anxiety disorder, unspecified, Z00.00 - Encounter for general adult medical examination without abnormal findings Lipid Panel 11/01/22 E78.00 - Pure hypercholesterolemia, unspecified, F41.9 - Anxiety disorder, unspecified, Z00.00 - Encounter for general adult medical examination without abnormal findings TSH reflex Free T4 11/01/22 E78.00 - Pure hypercholesterolemia, unspecified, F41.9 - Anxiety disorder, unspecified, Z00.00 - Encounter for general adult medical examination without abnormal findings Vitamin D 25-OH Total 11/01/22 E55.9 - Vitamin D deficiency, unspecified, F41.9 - Anxiety disorder, unspecified, Z00.00 - Encounter for general adult medical examination without abnormal findings Referrals Genetics Referral Z80.9 - Family history of malignant neoplasm, unspecified Medications: New sertraline 50 mg PO DAILY 30 days 30 tabs 2RF hydroxyzine HCl 25 mg PO TID 30 days PRN 90 tabs 2RF anxiety Coding Level of Care Code Est Pt Prev Care 18-39y([id number]) Diagnoses Annual physical exam Z00.00 Right-sided thoracic back pain, unspecified chronicity M54.6 Chronicity: unspecified Right wrist pain M25.531 Anxiety F41.9 Family history of breast cancer Z80.3 Breast cancer screening by mammogram Z12.31
== END 2022-11-01 13:52 | disposition home or self-care (01) ==
PROVIDERS: PCP Internal Medicine; Visit Provider Internal Medicine
DX: Z00.00 Encounter for general adult medical examination without abnormal findings (principal); F41.9 Anxiety disorder, unspecified; Z80.3 Family history of malignant neoplasm of breast; M54.6 Pain in thoracic spine; M25.531 Pain in right wrist
CPT/HCPCS: 99395

== ENCOUNTER 2022-11-01 14:03 | Outpatient (REF) | payer OTHER, SELFPAY ==
[2022-11-01 14:25] LABS: MANUAL DIFF FLAG NO
[2022-11-01 14:37] LABS: Basophils Percent Auto 0.4 % (0-2); Eosinophils Absolute Auto 0.2 X10*3/uL (0.0-0.4); Eosinophils Percent Auto 2.4 % (0-4); Hematocrit 38.2 % (37.0-47.0); Hemoglobin 13.4 g/dl (12.0-16.0); Imm Gran Abs Auto 0.01 X10*3/uL (0.00-0.03); Imm Gran Pct Auto 0.1 % (0.0-0.4); Lymphocytes Absolute Auto 2.4 X10*3/uL (1.2-4.9); Lymphocytes Percent Auto 34.1 % (20-40); Mean Corpuscular HGB Conc 35.1 g/dl (31.0-35.0); Mean Corpuscular Hemoglobin 32.1 pg (27.0-33.0); Mean Corpuscular Volume 91.6 fL (80.0-98.0); Mean Platelet Volume 9.9 fL (9.4-12.3); Monocytes Absolute Auto 0.3 X10*3/uL (0.1-1.2); Monocytes Percent Auto 4.6 % (2-11); Neutrophils Absolute Auto 4.1 x10*3/uL (2.0-8.3); Neutrophils Percent Auto 58.4 % (45-73); Platelet Count 269 X10*3/uL (160-400); Red Blood Count 4.17 X10*6/uL (4.20-5.50); Red Cell Distribution Width 11.4 % (11.0-16.0); White Blood Count 7.1 X10*3/uL (4.8-10.8)
[2022-11-01 15:31] LABS: Appearance Urine Clear; Color Urine Yellow; Glucose Urine UA Negative (Negative); Leukocyte Esterase Urine Large (3+) (Negative); Nitrite Urine Negative (Negative); Specific Gravity - Urine 1.015 (1.005-1.025); UMIC TRIGGER UACC YES; Urine Blood Trace (Negative); Urine Ketones Negative (Negative); Urine Protein Negative (Neg-Trace)
[2022-11-01 16:22] LABS: Bacteria Urine 3+ (None Seen); Hyaline Casts Urine 0-2 /LPF (0-2); RBC Urine 0-2 /HPF (0-2); UACC Culture Trigger YES; WBC Urine >50 /HPF (0-5)
[2022-11-01 16:22] LABS: Alanine Aminotransferase 18 U/L (0-31); Albumin Level 4.3 g/dL (3.5-5.0); Alkaline Phosphatase 38 U/L (39-117); Anion Gap 12 (12-20); Aspartate Amino Transferase 17 U/L (5-31); Bilirubin Total 0.5 mg/dL (0.0-1.0); Blood Urea Nitrogen 8 mg/dL (9-16); Calcium 9.7 mg/dL (8.4-10.2); Carbon Dioxide 25 mmol/L (22-29); Chloride 108 mmol/L (96-108); Cholesterol 168 mg/dL (<200); Estimated Glomerular Filt Rate > 60; Glucose Fasting 79 mg/dL (60-99); HDL Cholesterol 45 mg/dL (>40); LDL Cholesterol Calculated 108 mg/dL (<100); Potassium 4.5 mmol/L (3.3-5.1); Sodium 140 mmol/L (135-145); TSH reflex Free T4 0.69 uIU/mL (0.32-4.0); Total Protein 7.5 g/dL (6.5-8.0); Triglycerides 79 mg/dL (<150); Vitamin D 25-OH Total 61.3 ng/mL (>30)
== END 2022-11-01 14:04 | disposition home or self-care (01) ==
LOC: HO.LAB 14:03
PROVIDERS: PCP Internal Medicine; Visit Provider Internal Medicine
DX: Z00.00 Encounter for general adult medical examination without abnormal findings (principal); F41.9 Anxiety disorder, unspecified; E78.00 Pure hypercholesterolemia, unspecified; E55.9 Vitamin D deficiency, unspecified
CPT/HCPCS: 36415; 80053; 80061; 81001; 82306; 84443; 85025; 87086

== ENCOUNTER 2022-12-24 15:36 | Outpatient (REF) | payer OTHER, SELFPAY ==
--- NOTE | ~2022-12-24 | MM_ITS ---
EXAMINATION: MM SCREENING DIGITAL BREAST TOMOSYNTHESIS, BILATERAL CLINICAL INFORMATION: Screening. Asymptomatic. COMPARISON: Mammography: This is a baseline mammogram. TECHNIQUE: Digital breast tomosynthesis is performed in both the craniocaudal and mediolateral oblique views along with computer-aided detection (CAD). Synthesized 2D images are generated from the tomosynthesis. FINDINGS: The breasts are heterogeneously dense, which may obscure small masses (ACR BI-RADS breast composition Category c). There are no significant masses, abnormal calcifications, or other abnormalities. MM/MM tomosynthesis screening BI IMPRESSION: No mammographic evidence of malignancy. ASSESSMENT: BI-RADS BI-RADS 1 - Negative RECOMMENDATION: Routine annual mammography screening. 1 year F/U This examination should not preclude the clinical evaluation of a suspicious palpable abnormality. This patient's information was entered into a reminder system with a target due date for their next mammogram.
== END 2022-12-24 15:37 | disposition home or self-care (01) ==
LOC: HO.MAMMO 15:36
PROVIDERS: PCP Internal Medicine; Visit Provider Internal Medicine
DX: Z12.31 Encounter for screening mammogram for malignant neoplasm of breast (principal)
CPT/HCPCS: 77063; 77067

== ENCOUNTER → 2022-12-24 15:45 | Outpatient (BNV) | payer OTHER, SELFPAY | PROVIDERS: PCP Internal Medicine; Visit Provider Radiology Diagnostic Radiology | DX: Z12.31 Encounter for screening mammogram for malignant neoplasm of breast (principal) | CPT/HCPCS: 77063; 77067 ==

== ENCOUNTER 2022-12-25 17:00 | Outpatient (RCR) | payer OTHER, SELFPAY ==
--- NOTE | 2022-12-05 15:44 | MHC.PT.EP ---
[facility] [place] Office [place] Office [place] Office [address] Bonifacio Rodriguez [address] [phone] F: [phone] F: [phone] F: [phone] F: [phone] Physical Therapy Plan of Care Date of Evaluation: 12/05/22 Date of Surgery: N/A Diagnosis: right thoracic pain (RL) Assessment: pt is a 37 y/o female presenting to physical therapy w/ referring diagnosis of M54.6 pain in thoracic spine. Her signs and symptoms seem consistent w/ spasm of erector spinae located along thoracic spine. Impairments include pain, decreased range of motion, decreased strength, impaired functional mobility, impaired postural awareness, and altered ambulation mechanics. pt is a good candidate for skilled PT due to age, potential remediation of impairments, typical disease/condition progression and prognosis, comorbidities, and motivation. pt would benefit from skilled PT intervention to provide a tailored strengthening and stretching exercise program, functional training, gait training, postural re-training, neuromuscular re-education, modalities as needed for pain, equipment safety demonstration. Frequency and Duration: The patient will be seen 2x/wk for 4 wks Short Term Goals: pt will be I w/ HEP to promote self-management of condition. pt will improve lumbar flexion to at least 75% to promote ease in lower body dressing. 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 pt will demo safe lifting mechanics maintaining neutral spine x30# x5 reps to promote return to lifting. Treatment Plan: Modalities to reduce pain, spasms and effusion. Manual therapy to restore motion and function. Therapeutic exercise to improve strength and flexibility. Neuromuscular re-education for posture and balance. Therapeutic activities to return to functional activities of daily living. Electronically signed by: Camelia Conner PT, DPT Please sign and return to therapist. Thank you for your referral.
--- NOTE | 2023-02-20 13:57 | MHC.PT.DC ---
[facility] [place] Office [place] Office [place] Office [address] Bonifacio Rodriguez 140 [facility] [phone] F: [phone] F: [phone] F: [phone] F: [phone] Physical Therapy Discharge Report Diagnosis: right thoracic pain (RL) Date of Surgery: N/A Date of Evaluation: 12/05/22 Date of Discharge: 02/20/23 Treatments to Date: 7 Cancellations to Date: 0 No Shows to Date: 0 Discharge Status: Improved Function Independent with HEP Discharge Summary: The patient at the time of her last appointment (approximately 60 days ago) felt her symptoms were nearly resolved. She responded best to soft tissue work. She is independent with her home exercise program with the recommendation to continue on her own. She is discharged from this physical therapy plan of care. Electronically signed by: Camelia Conner PT, DPT Please sign and return to therapist. Thank you for your referral.
== END 2023-02-20 13:57 | disposition home or self-care (01) ==
LOC: HO.PT 17:00
PROVIDERS: PCP Internal Medicine; Visit Provider Internal Medicine
DX: M25.531 Pain in right wrist (principal); M54.6 Pain in thoracic spine
CPT/HCPCS: 97014; 97110; 97140; 97161

== ENCOUNTER 2023-01-30 15:30 | Outpatient (RCR) | payer OTHER, SELFPAY ==
--- NOTE | 2023-01-15 14:23 | MHC.OT.EP ---
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 Pt will benefit from OT for pt education on joint protection, activity modification , pain management and ther ex to improve wrist pain and function with daily activities Frequency and Duration: The patient will be seen 2 x wk , 4 wks Short Term Goals: Pt will reports activity modifications for right wrist joint protection with home making and crafting cards. Indep with HEP Pain free wrist ext to 60 deg Aviation Technician Aircraft Goals: Decrease complaint of wrist pain with partial wt bearing on right hand Pain free wrist ext > 65 deg Indep in activity modification with mopping, heavy cleaning and with card crafting tasks Treatment Plan: Therapeutic Exercise Therapeutic Activity Home Exercise Program Patient Education ADL Training Ultrasound Iontophoresis Fluidotherapy MHP Soft Tissue Mobilization Electronically Signed By: Kay Potts OT CHT CLT Please Sign and return to therapist. Thank you once again for your referral.
--- NOTE | 2023-02-21 11:41 | MHC.OT.DC ---
[address] [phone] F: [phone] Occupational Therapy Discharge Note Patient Name: Lili Pro Provider: Jacinto Rivera Diagnosis: Right wrist pain Date of Surgery: Date of Evaluation: 01/14/23 Date of Discharge: 02/21/23 Treatments to Date: 4 Cancellations to Date: 2 No Shows to Date: Discharge Status: Patient Elected to Stop Discharge Summary: Pt reports continued pain at dorsal radial wrist with use. Small radio- scaphoid ganglion palpated with mild edema May benefit from light compression to dec edema some improvement in pain with Advil Electronically Signed By: Kay Potts OT CHT CLT Reviewed/agree with student documentation: Therapist: Please Sign and return to therapist, thank you for your referral.
== END 2023-02-21 11:42 | disposition home or self-care (01) ==
LOC: HO.OT 15:30
PROVIDERS: PCP Internal Medicine; Visit Provider Internal Medicine
DX: M25.531 Pain in right wrist (principal)
CPT/HCPCS: 97033; 97035; 97110; 97165

== ENCOUNTER 2023-03-06 13:24 | Outpatient (REF) | payer OTHER, SELFPAY ==
[2023-03-14 06:06] LABS: HPV mRNA E6/E7 rflx Not Detected (Not Detected)
== END 2023-03-06 13:25 | disposition home or self-care (01) ==
LOC: HO.LNP 13:24
PROVIDERS: PCP Internal Medicine; Visit Provider Advanced Practice Midwife
DX: Z01.419 Encounter for gynecological examination (general) (routine) without abnormal findings (principal); N93.9 Abnormal uterine and vaginal bleeding, unspecified; N88.9 Noninflammatory disorder of cervix uteri, unspecified
CPT/HCPCS: 87624; 88142; 99395

== ENCOUNTER 2023-03-06 13:24 | Outpatient (AMB) | payer OTHER, SELFPAY ==
--- NOTE | 2023-03-06 13:43 | A.OFFVIS_ITS ---
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 Doing well with no concerns. Recent family diagnosis of BAP1, sister has brain tumor, brother has kidney and peritoneal tumors. History of mother having the gene positive now her brother and sister are positive. She will be in the [facility] study and is waiting for her testing kit to arrive she should have results in about a month. She tries to eat healthy and stays active with exercise. Regular monthly menses. Takes control to regulate and control volume of her menstrual flow. Currently is not sexually active. She denies vaginal itching and irritation. STI screening offered; she declines. Denies family history of many types of cancer. Last pap smear 2021, negative. She denies any contraindications to control such as: migraines with aura, history of DVT or pulmonary emboli, high blood pressure, liver disease, thrombolic disorders, Lupus, +REAGAN, breast cancer, or smoking. [facility] Medical History Depression Anxiety Cervical spondylosis with radiculopathy Chronic pain of right wrist Bilateral elbow joint pain Shoulder pain, bilateral Musculoskeletal pain of upper extremity Surgical History [place] teeth extracted Family History (Updated 03/06/23 @ 16:18 by Alexa Lloyd CNM) Mother Breast cancer Congestive heart failure Monoallelic mutation of BAP1 gene Maternal Grandfather Colon cancer Diabetes Sister Brain tumor (benign) Monoallelic mutation of BAP1 gene Brother Monoallelic mutation of BAP1 gene Renal cancer Other Mental health problem Substance abuse Social History Housing: Apartment Alcohol intake: current Alcohol intake frequency: holidays/special occasions only Patient Tobacco Use Status: Never used Tobacco Second Hand Smoke Exposure: Yes service: No Current occupational status: employed 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 Sexual orientation: Straight/Heterosexual Gender identity: Female Cognitive needs: No Hearing needs: No Vision needs: No Female Reproductive History Menstrual Age of Menarche: 14 Duration of menses: 6-7 days Date of last menstrual period: 02/18/23 control method: vaginal ring Total pregnancies: 0 Date of last pap smear: 02/28/21 (neg pap and hpv) Review of Systems Const All systems reviewed & are unremarkable except as noted in HPI and below Reports as per HPI Eyes Reports no additional complaints ENT Reports no additional complaints Card Reports no additional complaints Resp Reports no additional complaints GI Reports as per HPI and Reports no additional complaints Reports as per HPI Musc Reports no additional complaints Skin/Breast Reports as per HPI Neuro Reports no additional complaints Psych Reports no additional complaints Endo Reports no additional complaints Rey/Lymph Reports no additional complaints Aller/Immun Reports no additional complaints Physical Exam Vital Signs: Last Vital Signs BP 114/76 03/06/23 13:45 BMI result Body Mass Index 25.7 Const General: cooperative, healthy appearing, no acute distress, well developed and alert Orientation/consciousness: patient oriented x3 HEENT Head: Yes normal to inspection Eyes General: appearance normal, both eyes and all related structures Neck Neck: Yes normal visual inspection Thyroid: Thyroid normal Chest Chest palpation & inspection: normal inspection of the chest and other (no puck ering, dimpling, peau de orange, retraction, discharge, masses) Breast/axilla inspection: normal inspection of the breasts Breast/axilla palpation: normal palpation of the breasts Resp Effort & Inspection: normal respiratory effort GI Inspection: Yes normal to inspection Palpation (GI): Soft to palpation Rectal Exam - Female: deferred General: Yes bladder normal to palpation External Female Exam: normal external appearance and normal appearance of the urethra Speculum Exam - Vagina: normal appearance of the vagina, normal palpation and normal vaginal discharge Speculum Exam - Cervix: normal appearance of the cervix, normal palpation and Other cervical findings present (Large ectopy anterior cervix at 12:00 blood- oozing/beefy) Bimanual exam- vagina & uterus: normal bimanual exam, normal palpation, uterine size normal, bladder normal to palpation, normal palpation and non-tender Bimanual Exam- Adnexa, other: no masses Skin General skin exam: no rashes or lesions noted Rashes: no rashes Neuro General: patient oriented x3 Cognition (Neuro): normal cognition Extrem General: Yes normal to inspection Psych Attitude: cooperative Thought process: Normal thought process present Assessment & Plan Assessment & Plan (1) Encounter for well woman exam with routine gynecological exam: Code(s): Z01.419 - Encounter for gynecological examination (general) (routine) without abnormal findings (2) Abnormality of cervix: Code(s): N88.9 - Noninflammatory disorder of cervix uteri, unspecified Plan: Discussed: My concerns over her cervical findings today. Plan repeat Pap. Plan follow up with MD for possible: Colposcopy due to cervical abnormalities an excessive bleeding with exam. Plan Discussed: Current recommendations for pap smears per ASCCP guidelines. Breast awareness and periodic breast exams. Maintain a healthy lifestyle including a well balanced diet and routine exercise. Advised to notify our department of her genetic testing results when they come in. Patient prefers to stay on the NuvaRing for now until results are available control hormone use warnings: go to ER if and loss of vision, blindness, severe headache, chest pain or difficulty breathing, severe abdominal pain, or any pain or swelling in an extremity. All of her questions and concerns were addressed to the best of my ability. RTO in one year for annual carpenters helper examination. This note is constructed using voice recognition software. While every effort has been made to ensure accuracy, psychology tech errors may have been included. Orders: Orders Pap Smear Today N93.9 - Abnormal uterine and vaginal bleeding, unspecified, Z01.419 - Encounter for gynecological examination (general) (routine) without abnormal findings Medications: Refilled etonogestrel-ethinyl estradiol 0.12-0.015 mg/24 hr (NuvaRing) 1 vag ring vaginal Q4W 3 weeks 9 ea 4RF Coding Level of Care Code Est Pt Prev Care 18-39y(04641) Diagnoses Encounter for well woman exam with routine gynecological exam Z01.419 Abnormality of cervix N88.9
[2023-03-06 13:45] VITALS: BP 114/76; BMI 25.7
== END 2023-03-06 14:32 | disposition home or self-care (01) ==
LOC: HO.HWS 13:24
PROVIDERS: PCP Internal Medicine; Visit Provider Advanced Practice Midwife
DX: Z01.419 Encounter for gynecological examination (general) (routine) without abnormal findings (principal); N88.9 Noninflammatory disorder of cervix uteri, unspecified
CPT/HCPCS: 99395

== ENCOUNTER 2023-03-31 15:04 | Outpatient (AMB) | payer OTHER, SELFPAY ==
[2023-03-31 15:07] VITALS: BP 108/72; PULSE 97; O2SAT 95; BMI 25.6
--- NOTE | 2023-03-31 15:07 | A.OFFPC_ITS ---
Vital Signs 03/31/23 15:07 Height 5 ft 1 in Weight 135 lb 6 oz BMI 25.6 BP 108/72 Blood Pressure Location Lt brachial Position Sitting Pulse 97 Pulse Source Pulse Oximeter Pulse Oximetry (%) 95 Oxygen Delivery Method Room Air Intake Visit Reasons: anxiety, back pain Intake Note: Dr. Rivera's pt here for back pain and anxiety F/U. 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 Accompanied by: Self / Same As Patient Allergies Penicillins Allergy (Unknown, Verified 03/31/23 15:12) Itching Medication List - Last Reconciled 03/31/23 by Jono Villar PA-C etonogestrel-ethinyl estradiol 0.12-0.015 mg/24 hr (NuvaRing) 1 vag ring vaginal Q4W 3 weeks sertraline 50 mg PO DAILY 30 days Tobacco use date assessed: 03/31/23 Dental Screening Dental Screen Date: 03/31/23 Did you have a dental visit in the last 12 months?: Yes Did you have a dental problem in the last 6 months where you did not have access to dental care?: No Was dental information given to patient?: Patient has dentist HPI anxiety, back pain HPI Details Patient is a 37-year-old female here today for follow-up visit. This the 1st time I am meeting this 37-year-old female with a past medical history significant for JIM . Patient reports her anxiety has been better controlled with current dose of sertraline at 50 mg. She does report having breakthrough anxious symptoms mostly attributed to personal issues with her . She also does report a week before her menstrual. She does get a lot more givens and irritable and wonders if she can use higher dose of her SSRI therapy before her menstrual period. Also concerned about her shortness of breath on exertion she has noted over the last several months ever since having COVID. She was never diagnosed with asthma as a child. She reports she does not have any shortness of breath or cough at rest. [facility] Medical History Depression Anxiety Cervical spondylosis with radiculopathy Chronic pain of right wrist Bilateral elbow joint pain Shoulder pain, bilateral Musculoskeletal pain of upper extremity Surgical History [place] teeth extracted Family History Mother Breast cancer Congestive heart failure Monoallelic mutation of BAP1 gene Maternal Grandfather Colon cancer Diabetes Sister Brain tumor (benign) Monoallelic mutation of BAP1 gene Brother Monoallelic mutation of BAP1 gene Renal cancer Other Mental health problem Substance abuse Social History Housing: Apartment Alcohol intake: current Alcohol intake frequency: holidays/special occasions only Patient Tobacco Use Status: Never used Tobacco e-Cigarette/Vaping Use: Never Used Second Hand Smoke Exposure: Yes service: No Current occupational status: employed 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 1. Little interest or pleasure in doing things: not at all 2. Feeling down, depressed, or hopeless: not at all 3. Trouble falling or staying asleep, or sleeping too much: not at all 4. Feeling tired or having little energy: not at all 5. Poor appetite or overeating: not at all 6. Feeling bad about yourself - or that you are a failure or have let yourself or your family down: not at all 7. Trouble concentrating on things, such as reading the newspaper or watching television: not at all 8. Moving or speaking so slowly that other people could have noticed. Or the opposite - being so fidgety or restless that you have been moving around a lot more than usual: not at all 9. Thoughts that you would be better off or of hurting yourself in some way: not at all Total score: 0 Depression Screening Interpretation: Negative Depression Screening Done: Yes 55595 - PHQ-9 Billing: Yes Source: Developed by Drs. Hank Reyes, Chelsea Rob, Jorge Edmonds and colleagues, with an educational kaitlin from [employer]. Thrive Questionnaire Date Thrive assessed: 03/31/23 I am a: Patient What is your living situation today?: I have a steady place to live Within the past 12 months, did the food you bought not last and you didn't have the money to get more?: Never true Within the past 12 months, did you worry whether your food would run out before you got money to buy more?: Never true Do you have trouble paying for medicines?: No Do you have trouble getting transportation to medical appointments?: No Do you have trouble paying your heating and electricity bill?: No Do you have trouble taking care of your child, family member or friend?: No Do you have trouble with day-to-day activities such as bathing, preparing meals, shopping, managing finances, etc.?: No Are you currently unemployed and looking for a job?: No Are you interested in more education?: No Please select the resources that you would like help with: None Currently or been in a relationship where the following occur: no concerns reported THRIVE Score: 0 AUDIT C Alcohol Use Questionnaire (AUDIT-C) 1. How often do you have a drink containing alcohol?: Monthly or less 2. How many drinks containing alcohol do you have on a typical day when you are drinking?: 1 or 2 3. How often do you have six or more drinks on one occasion?: Never Total Score: 1 JIM-7 AMB Questionnaire JIM-7 Date JIM - 7 assessed: 03/31/23 Feeling nervous, anxious, or on edge: 0 = Not at all Not being able to stop or control worryin = Not at all Worrying too much about different things: 0 = Not at all Trouble relaxin = Not at all Being so restless that it is hard to sit still: 0 = Not at all Becoming easily annoyed or irritable: 0 = Not at all Feeling afraid as if something awful might happen: 0 = Not at all Total IJM-7 score (0-4 normal; 5-9 mild; 10-14 moderate; 15-21 severe): 0 Source: Developed by Drs. Hank Reyes, Chelsea Rob, Jorge Edmonds and colleagues, with an educational kaitlin from [employer]. JIM-7 Assessment Billing JIM-7 Assessment Tool: JIM-7 Assessment 61009 Review of Systems Const Denies headache(s) Eyes Denies loss of vision ENT Denies vertigo, Denies dizziness, Denies headache(s) and Denies sore throat Card Denies chest pain, Denies leg edema and Denies lightheadedness Resp Denies cough, Denies hemoptysis and Denies wheezing GI Denies abdominal pain, Denies melena, Denies constipation, Denies diarrhea and Denies vomiting Denies urinary frequency, Denies dysuria and Denies urinary urgency Musc Denies arthralgias, Denies joint swelling, Denies numbness and Denies tingling Neuro Denies Abnormal speech present, Denies behavioral changes, Denies vertigo, Denies dizziness, Denies headache(s), Denies loss of vision, Denies memory loss, Denies numbness and Denies tingling Psych Denies anxiety, Denies behavioral changes, Denies depression, Denies memory loss and Denies panic attacks Rey/Lymph Denies easy bleeding and Denies easy bruising Aller/Immun Denies wheezing Physical exam (Primary Care) Vital Signs: Last Vital Signs Pulse 97 03/31/23 15:07 BP 108/72 03/31/23 15:07 Pulse Ox 95 03/31/23 15:07 Oxygen Delivery Method Room Air 03/31/23 15:07 BMI result Body Mass Index 25.6 Tobacco/Smoking Status: Tobacco use Status Tobacco use date assessed 03/31/23 03/31/23 15:11 Patient Tobacco Use Status Never used Tobacco 03/31/23 15:11 e-Cigarette/Vaping Use Never Used 03/31/23 15:11 PHQ-9: PHQ-9 Score PHQ-9: Total score 0 03/31/23 15:18 Depression Screening Interpretation: Negative Thrive Assessment: Date of Thrive Assessment Date Thrive assessed 03/31/23 03/31/23 15:11 Currently or been in a relationship where the following occur: no concerns reported Const General: healthy appearing, no acute distress, alert and awake Nutritional Appearance: well nourished Orientation/consciousness: oriented to person, oriented to place and oriented to time HENMT Ears: TM's normal bilaterally General nose exam: Normal nasal mucous membranes and turbinates present Eyes Conjunctivae: conjunctivae normal Sclerae: sclerae normal Pupils: Equal, round and reactive pupils present Neck Neck: Yes no lymphadenopathy and Yes no JVD Thyroid: Thyroid normal Carotids: no bruits Resp Effort & Inspection: normal respiratory effort and not tachypneic Auscultation: no crackles, no rales, no rhonchi and no wheezes Cardio Rate: regular rate Rhythm: regular rhythm Heart sounds: no murmurs and normal S1 and S2 GI Palpation (GI): Soft to palpation, nontender, no hepatomegaly and no splenome isaac Auscultation: normal bowel sounds Skin General skin exam: no rashes or lesions noted and dry skin Neuro General: oriented to person, oriented to place and oriented to time Cranial nerves: Yes Equal, round and reactive pupils present Speech: No Abnormal speech present Gait exam (Neuro): Normal gait present Motor exam (neuro): no tremor noted Extrem Right upper extremity: full ROM Left upper extremity: full ROM Right lower extremity: full ROM; no edema Left lower extremity: full ROM; no edema Psych Mental Status: mental status grossly normal Speech and movement: Normal speech and movement present Affect: normal affect Attitude: cooperative Thought process: Normal thought process present Assessment and Plan Assessment & Plan (1) Anxiety: Code(s): F41.9 - Anxiety disorder, unspecified Plan: Patient reports her anxieties been controlled for the most part. She reports prior to menstruation she does get very givens and irritable. She is interested in increasing her SSRI dose during the time before her period help her with her mood. Thus will increase her sertraline dose to 75 mg the week before her menstruation. (2) SOB (shortness of breath) on exertion: Code(s): R06.02 - Shortness of breath Plan: Does report noting some shortness of breath on exertion over last several months. She is interested in being tested for asthma. Will place an order for PFT testing. Advised on use an albuterol inhaler before physical activity Orders: Orders PFT pulmonary function test 03/31/23 R06.02 - Shortness of breath Medications: New albuterol sulfate 90 mcg/actuation (Ventolin HFA) 2 puffs inhalation QID 30 days 8.5 grams 0RF R06.02 - Shortness of breath Changed From sertraline 50 mg PO DAILY 30 days 30 tabs 2RF F32.A - Depression, unspecified To sertraline 75 mg (1.5 x 50 mg) PO DAILY 30 days 45 tabs 2RF F32.A - Depression, unspecified Coding Level of Care Code Est Pt Level 4 (77291) Diagnoses Anxiety F41.9 SOB (shortness of breath) on exertion R06.02 Additional Codes JIM-7 Assessment Billing - JIM-7 Assessment Tool: JIM-7 Assessment 02101 ([id number])
== END 2023-03-31 15:35 | disposition home or self-care (01) ==
PROVIDERS: PCP Internal Medicine; Visit Provider Physician Assistant
DX: F41.9 Anxiety disorder, unspecified (principal); R06.02 Shortness of breath
CPT/HCPCS: 99214

== ENCOUNTER 2023-05-06 08:32 | Outpatient (AMB) | payer OTHER, SELFPAY ==
--- NOTE | 2023-05-06 08:36 | A.OFFVIS_ITS ---
Intake Vital Signs 05/06/23 08:41 Height 5 ft 1 in Weight 134 lb 7.712 oz BMI 25.4 BP 110/68 Intake Visit Reasons: Consult Cervical Lesion/pap only Ophthalmic Medical Assistant Required: No Information Interpreted: non-clinical & clinical Staff Development Coordinator: Staff Development Coordinator Present (Danielle Diaz ELISABETH) Accompanied by: Self / Same As Patient Allergies Penicillins Allergy (Unknown, Verified 05/06/23 08:41) Itching HPI HPI Comments History of Present Illness Details Presenting referred from Alexa Lloyd CNM regarding abnormal cervical exam, last Pap smear was unsatisfactory due to blood, HPV negative [facility] Medical History Depression Anxiety Cervical spondylosis with radiculopathy Chronic pain of right wrist Bilateral elbow joint pain Shoulder pain, bilateral Musculoskeletal pain of upper extremity Surgical History [place] teeth extracted Family History Mother Breast cancer Congestive heart failure Monoallelic mutation of BAP1 gene Maternal Grandfather Colon cancer Diabetes Sister Brain tumor (benign) Monoallelic mutation of BAP1 gene Brother Monoallelic mutation of BAP1 gene Renal cancer Other Mental health problem Substance abuse Social History Housing: Apartment Alcohol intake: current Alcohol intake frequency: holidays/special occasions only Patient Tobacco Use Status: Never used Tobacco e-Cigarette/Vaping Use: Never Used Second Hand Smoke Exposure: Yes service: No Current occupational status: employed 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 Sexual orientation: Straight/Heterosexual Gender identity: Female Cognitive needs: No Hearing needs: No Vision needs: No Female Reproductive History Menstrual Age of Menarche: 14 Review of Systems Const All systems reviewed & are unremarkable except as noted in HPI and below Physical Exam Vital Signs: Last Vital Signs BP 110/68 05/06/23 08:41 BMI result Body Mass Index 25.4 General: Yes no CVA tenderness External Female Exam: normal external appearance and normal appearance of the urethra Speculum Exam - Vagina: normal appearance of the vagina, normal palpation, no lesions and no masses Speculum Exam - Cervix: normal palpation, no lesions, no masses, nontender and Other cervical findings present (Ectropion/red areas anterior posterior cervical lip) Bimanual exam- vagina & uterus: normal bimanual exam, normal palpation, uterine size normal, normal palpation, uterine shape normal, No Cervical tenderness present and non-tender Bimanual Exam- Adnexa, other: normal adnexae Back/Spine/Pelvis Back: no CVA tenderness Office Procedures EVICTION SPECIALIST Biopsy Before the procedure was started discussed with the patient the procedure, alternatives & all the risks associated with the procedure (bleeding, infection, injury to vagina, bladder, vessels, possible need for transfusion with all its risks) then patient signed the consent UPT done in the office & negative Pap smear = unsatisfactory due to blood/HPV negative Speculum inserted, acetic acid used Cervical biopsies taken from 6+12 o?clock Monsel solution used for hemostasis. The patient tolerated well . At the end the patient was instructed to call if temp>100.4, abdominal pain, n/v, bleeding; The patient was given the following instructions: nothing per vagina, no intercourse or bath tub use. All questions answered the patient verbalized understanding. Instructed the patient to make an appointment in 2 weeks for follow-up This note was generated with a voice recognition program. Some errors may have been overlooked during the review of this note. Sometimes these errors may affect the content or meaning of a given sentence. 54263-Ixxxox of Cervix Procedure code (CPT) selection complete Assessment & Plan Assessment & Plan (1) Abnormality of cervix: Code(s): N88.9 - Noninflammatory disorder of cervix uteri, unspecified Plan: GC/CT taken, cervical biopsy done, see procedure note (2) Unsatisfactory cervical Papanicolaou smear: Code(s): R87.615 - Unsatisfactory cytologic smear of cervix Plan: Pap repeated Orders: Orders AMB EVICTION SPECIALIST Biopsy Today N88.9 - Noninflammatory disorder of cervix uteri, unspecified Coding Level of Care Code Est Pt Level 3 (41318) Diagnoses Abnormality of cervix N88.9 Unsatisfactory cervical Papanicolaou smear R87.615 CPT Codes EVICTION SPECIALIST Biopsy - CPT: 65602-[place] of Cervix ([id number])
[2023-05-06 08:41] VITALS: BP 110/68; BMI 25.4
== END 2023-05-06 09:02 | disposition home or self-care (01) ==
LOC: HO.HWS 08:32
PROVIDERS: PCP Internal Medicine; Visit Provider Obstetrics & Gynecology
DX: N88.9 Noninflammatory disorder of cervix uteri, unspecified (principal); R87.615 Unsatisfactory cytologic smear of cervix; Z32.02 Encounter for pregnancy test, result negative
CPT/HCPCS: 57500; 99213

== ENCOUNTER 2023-05-06 08:32 | Outpatient (REF) | payer OTHER, SELFPAY ==
[2023-05-07 13:40] LABS: CT PCR NOT DETECTED (Not Detect.); NG PCR NOT DETECTED (Not Detect.)
[2023-05-13 12:38] LABS: HPV mRNA E6/E7 rflx Not Detected (Not Detected)
== END 2023-05-06 08:33 | disposition home or self-care (01) ==
LOC: HO.LNP 08:32
PROVIDERS: PCP Internal Medicine; Visit Provider Obstetrics & Gynecology
DX: N88.9 Noninflammatory disorder of cervix uteri, unspecified (principal); R87.615 Unsatisfactory cytologic smear of cervix; Z32.02 Encounter for pregnancy test, result negative
CPT/HCPCS: 0353U; 57500; 81025; 87624; 88142; 88305; 99212

== ENCOUNTER 2023-06-03 15:48 | Outpatient (AMB) | payer OTHER, SELFPAY ==
--- NOTE | 2023-06-03 15:52 | MHC.OFFVIS ---
Intake Vital Signs 06/03/23 15:54 Height 5 ft 1 in Weight 134 lb 7.712 oz BMI 25.4 BP 110/68 Intake Visit Reasons: BX Follow up Allergies Penicillins Allergy (Unknown, Verified 05/06/23 08:41) Itching HPI HPI Comments History of Present Illness Details Presenting post cervical biopsy for follow-up. The patient is doing well with no complaints. The pathology showed the following: A. Cervix, 6:00, biopsy: Endocervical glandular mucosa with marked acute and chronic inflammation; negative for dysplasia; no squamous component present. B. Cervix, 12:00, biopsy: Endocervical glandular mucosa with marked acute and chronic inflammation; negative for dysplasia; no squamous component present. Co testing was negative [facility] Medical History Depression Anxiety Cervical spondylosis with radiculopathy Chronic pain of right wrist Bilateral elbow joint pain Shoulder pain, bilateral Musculoskeletal pain of upper extremity Surgical History [place] teeth extracted Family History Mother Breast cancer Congestive heart failure Monoallelic mutation of BAP1 gene Maternal Grandfather Colon cancer Diabetes Sister Brain tumor (benign) Monoallelic mutation of BAP1 gene Brother Monoallelic mutation of BAP1 gene Renal cancer Other Mental health problem Substance abuse Social History Housing: Apartment Alcohol intake: current Alcohol intake frequency: holidays/special occasions only Patient Tobacco Use Status: Never used Tobacco e-Cigarette/Vaping Use: Never Used Second Hand Smoke Exposure: Yes service: No Current occupational status: employed 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 Sexual orientation: Straight/Heterosexual Gender identity: Female Cognitive needs: No Hearing needs: No Vision needs: No Female Reproductive History Menstrual Age of Menarche: 14 Date of last menstrual period: 05/12/23 Review of Systems Const All systems reviewed & are unremarkable except as noted in HPI and below Reports as per HPI and Reports no additional complaints GI Reports no additional complaints Reports no additional complaints Assessment & Plan Assessment & Plan (1) Abnormality of cervix: Code(s): N88.9 - Noninflammatory disorder of cervix uteri, unspecified Plan: Discussed with the patient the results of the pathology and the co testing, the patient was reassured. All questions answered, the patient verbalized understanding Coding Level of Care Code Est Pt Level 3 (84426) Diagnoses Abnormality of cervix N88.9
[2023-06-03 15:54] VITALS: BP 110/68; BMI 25.4
== END 2023-06-03 15:58 | disposition home or self-care (01) ==
LOC: HO.HWS 15:48
PROVIDERS: PCP Internal Medicine; Visit Provider Obstetrics & Gynecology
DX: N88.9 Noninflammatory disorder of cervix uteri, unspecified (principal)
CPT/HCPCS: 99213

== ENCOUNTER → 2023-06-03 15:48 | Outpatient (BNVA) | payer OTHER, SELFPAY | PROVIDERS: PCP Internal Medicine; Visit Provider Obstetrics & Gynecology | DX: N88.9 Noninflammatory disorder of cervix uteri, unspecified (principal) | CPT/HCPCS: 99212 ==

== ENCOUNTER 2024-03-09 07:58 | Outpatient (AMB) | payer OTHER, SELFPAY ==
--- NOTE | 2024-03-09 08:13 | MHC.OFFVIS ---
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 Doing well with no senior teller concerns. Regular monthly menses. Currently is not sexually active. She denies vaginal itching and irritation. STI screening offered; she declines. She tries to eat healthy and stays active with exercise. Denies family history of breast, ovarian or colon cancer. Last pap smear 2023, negative. Previous colposcopy due to AUB, abnormal appearance of cervix and unsatisfactory Pap smear. [facility] Medical History (Updated 03/09/24 @ 09:12 by ELISABETH Burnett) Monoallelic mutation of BAP1 gene Depression Anxiety Cervical spondylosis with radiculopathy Chronic pain of right wrist Bilateral elbow joint pain Shoulder pain, bilateral Musculoskeletal pain of upper extremity Surgical History [place] teeth extracted Family History (Updated 03/09/24 @ 11:06 by ELISABETH Burnett) Mother Breast cancer Congestive heart failure Monoallelic mutation of BAP1 gene Maternal Grandfather Colon cancer Diabetes Sister Brain tumor (benign) Monoallelic mutation of BAP1 gene Brother Monoallelic mutation of BAP1 gene Renal cancer Maternal Grandmother Breast cancer Lung cancer Brother Monoallelic mutation of BAP1 gene Other Mental health problem Substance abuse Social History Housing: Apartment Alcohol intake: current Alcohol intake frequency: holidays/special occasions only Patient Tobacco Use Status: Never used Tobacco e-Cigarette/Vaping Use: Never Used Second Hand Smoke Exposure: Yes service: No Current occupational status: employed 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 Sexual orientation: Straight/Heterosexual Gender identity: Female Cognitive needs: No Hearing needs: No Vision needs: No Female Reproductive History Menstrual Age of Menarche: 14 Duration of menses: 6-7 days Date of last menstrual period: 02/18/24 control method: vaginal ring Total pregnancies: 0 Date of last pap smear: 05/06/23 (neg pap and hpv) History of abnormal pap smear: No (03/06/23 unsat 05/10 colpo (cervical abnormality)) Review of Systems Const All systems reviewed & are unremarkable except as noted in HPI and below Reports as per HPI Eyes Reports no additional complaints ENT Reports no additional complaints Card Reports no additional complaints Resp Reports no additional complaints GI Reports as per HPI and Reports no additional complaints Reports as per HPI Musc Reports no additional complaints Skin/Breast Reports as per HPI Neuro Reports no additional complaints Psych Reports no additional complaints Endo Reports no additional complaints Rey/Lymph Reports no additional complaints Aller/Immun Reports no additional complaints Physical Exam Vital Signs: Last Vital Signs BP 102/72 03/09/24 08:15 BMI result Body Mass Index 27.4 Const General: cooperative, healthy appearing, no acute distress, well developed and alert Orientation/consciousness: patient oriented x3 HEENT Head: Yes normal to inspection Eyes General: appearance normal, both eyes and all related structures Neck Neck: Yes normal visual inspection Thyroid: Thyroid normal Chest Chest palpation & inspection: normal inspection of the chest and other (no puckering, dimpling, peau de orange, retraction, discharge, masses) Breast/axilla inspection: normal inspection of the breasts Breast/axilla palpation: normal palpation of the breasts Resp Effort & Inspection: normal respiratory effort GI Inspection: Yes normal to inspection Palpation (GI): Soft to palpation Rectal Exam - Female: deferred General: Yes bladder normal to palpation External Female Exam: normal external appearance and normal appearance of the urethra Speculum Exam - Vagina: normal appearance of the vagina, normal palpation and normal vaginal discharge Speculum Exam - Cervix: normal appearance of the cervix, normal palpation and Other cervical findings present (Ectopy) Bimanual exam- vagina & uterus: normal bimanual exam, normal palpation, uterine size normal, bladder normal to palpation, normal palpation and non-tender Bimanual Exam- Adnexa, other: no masses Skin General skin exam: no rashes or lesions noted Rashes: no rashes Neuro General: patient oriented x3 Cognition (Neuro): normal cognition Extrem General: Yes normal to inspection Psych Attitude: cooperative Thought process: Normal thought process present Assessment & Plan Assessment & Plan (1) Encounter for well woman exam with routine gynecological exam: Code(s): Z01.419 - Encounter for gynecological examination (general) (routine) without abnormal findings Category: Medical Plan Discussed: Current recommendations for pap smears per ASCCP guidelines. Breast awareness and periodic breast exams. Maintain a healthy lifestyle including a well balanced diet and routine exercise. Use condoms for STI and prevention. Patient verbalizes understanding and agrees to the plan of care. She was given opportunity to ask questions and all questions were answered to the best of my ability. RTO in one year for annual senior teller examination. This note is constructed using voice recognition software. While every effort has been made to ensure accuracy, sack keeper errors may have been included. Coding Level of Care Code Est Pt Prev Care 18-39y(92084) Diagnoses Encounter for well woman exam with routine gynecological exam Z01.419
[2024-03-09 08:15] VITALS: BP 102/72; BMI 27.4
== END 2024-03-09 08:52 | disposition home or self-care (01) ==
PROVIDERS: PCP Internal Medicine; Visit Provider Advanced Practice Midwife
DX: Z01.419 Encounter for gynecological examination (general) (routine) without abnormal findings (principal)
CPT/HCPCS: 99395; 99459

== ENCOUNTER → 2024-03-09 07:58 | Outpatient (BNVA) | payer OTHER, SELFPAY | PROVIDERS: PCP Internal Medicine; Visit Provider Advanced Practice Midwife | DX: Z01.419 Encounter for gynecological examination (general) (routine) without abnormal findings (principal) | CPT/HCPCS: 99395; 99459 ==